=== PATIENT | male | born 1970 | race Caucasian/White ===

== ENCOUNTER 2017-06-21 00:23 | Observation (INO) | payer SELFPAY ==
[2017-06-21 01:15] LABS: Bilirubin Negative (Negative); Blood, Urine Negative (Negative); Clarity CLEAR (Clear); Glucose, Urine (Dipstick) Negative (Negative); Leukocyte Negative (Negative); Nitrite Negative (Negative); Protein, Urine (Dipstick) Negative (Neg-Trace); Specific Gravity, Urine 1.011 (1.002-1.036); Urobilinogen 0.2 mg/dL (0.2-1.0); pH, Urine 7.5 (5.0-9.0)
[2017-06-21 01:23] LABS: Medtox Reader # READER 4
[2017-06-21 01:24] LABS: Amphetamine Not Detected (NotDetected); Barbiturates Screen Not Detected (NotDetected); Benzodiazepine Screen Not Detected (NotDetected); Cocaine Metabolite Screen Not Detected (NotDetected); Medtox Control Line Valid? VALID (VALID); Methadone Not Detected (NotDetected); Methamphetamine Not Detected (NotDetected); Opiate Screen Not Detected (NotDetected); Oxycodone Screen Not Detected (NotDetected); Phencyclidine (PCP) Not Detected (NotDetected); THC/Cannabinoid Screen Detected (NotDetected); Tricyclic Screen Not Detected (NotDetected)
[2017-06-21 01:39] LABS: CKMB 2.7 ng/mL (0-6.6); Troponin I 0.039 ng/mL (< 0.028)
[2017-06-21] MEDS ORDERED: Ondansetron HCl/PF 4 MG/2 ML Vial IVP PRN (03:05)
[2017-06-21] MEDS ORDERED: Acetaminophen 325 MG TAB PO PRN (03:05)
[2017-06-21] MEDS ORDERED: Metoprolol Tartrate 25 MG TAB PO SCH ×2 (03:05→09:00)
[2017-06-21] MEDS ORDERED: Enoxaparin Sodium 40 MG/0.4 ML SYRINGE SC SCH (03:05)
[2017-06-21] MEDS ORDERED: HYDROcodone/Acetaminophen 5/325 mg Tablet PO PRN (03:05)
[2017-06-21] MEDS: Nitroglycerin 2% Ointment 1 INCH/1 GM Packet TOP SCH ×3 (03:47→14:02)
[2017-06-21 03:51] VITALS: BMI 32.5
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
[2017-06-21 06:13] LABS: Cardiac Risk 4.6 (Less than 4.5)
[2017-06-21 06:17] LABS: CKMB 2.7 ng/mL (0-6.6); Troponin I 0.037 ng/mL (< 0.028)
[2017-06-21] MEDS ORDERED: Aspirin 325 MG TAB PO SCH (08:00)
[2017-06-21] MEDS ORDERED: Famotidine/PF 20 mg/2ml Vial SLOW IVP SCH (09:00)
[2017-06-21 11:59] VITALS: BP 158/88; TEMP 98.1
--- NOTE | 2017-06-21 13:49 | NM ---
CARDIAC SPECT: CLINICAL HISTORY: 46-year-old male with hypertension, atherosclerotic vascular disease, stroke, asthma, smoke r. TECHNIQUE: A myocardial perfusion scan was performed using the single isotope one day protocol with technetium-9 9m sestamibi. 11 mCi were injected intravenously for the rest exam followed by 33 mCi for the stress exam. Pharmacologic stress with Lexiscan was monitored and interpreted by Dr. Olea. FINDINGS: Homogeneous tracer distribution is seen in the myocardial segments on stress and rest images without fixed or reversible defects. GATED SPECT LVEF: 62%. WALL MOTION EXAM: Normal. IMPRESSION: Normal myocardial perfusion scan. POS: KATHRYN
[2017-06-21] MEDS ORDERED: Regadenoson 0.4 MG/5 ML SYRINGE ONE (15:33)
--- NOTE | 2017-06-21 17:55 | DIS ---
DATE OF ADMISSION: 06/21/2017 DATE OF DISCHARGE: 06/21/2017 DISCHARGE DIAGNOSES: 1. Chest pain, non-cardiac. 2. Hypertensive urgency, resolved. 3. Marijuana use. 4. Status post influenza. CONSULTATIONS: None. PERTINENT LAB AND X-RAY FINDINGS: Basic metabolic profile within normal limits. LFTs within normal limits. Troponin I ranged between 0.036-0.039, total cholesterol 142, triglycerides 72, HDL 31 and L DL 97. CBC showed a white blood cell count of 11.7, hemoglobin 16, hematocrit 50 and platelet count 235. Urine drug screen positive for cannabinoids. Portable chest x-ray dated 06/20/2017 showed no a cute cardiopulmonary process. Cardiolite stress test dated 06/21/2017 showed no evidence for reversi ble or fixed ischemia with calculated ejection fraction of 62%. A 2D transthoracic echocardiogram da mitzi 06/21/2017 showed an ejection fraction of 50% to 55%. No pathology identified. HOSPITAL COURSE: Patient was observed on the telemetry unit after presenting with elevated blood pre ssure and questionable chest pain. The patient underwent serial troponins showing mild elevation as stated previously. The patient was also noted with elevated blood pressures, initially placed on asp irin and labetalol. The patient underwent a general cardiac evaluation including cardiac stress test ing showing no evidence of reversible or fixed ischemia with calculated ejection fraction of 62%. Te lemetry monitoring showed sinus mechanism without evidence of acute arrhythmia or dysrhythmia. The p atient was initiated on metoprolol 25 mg b.i.d. with overall improved blood pressure trend. The neris ent likely will need additional titration of his antihypertensive regimen on an ongoing basis after d ischarge. Overall, the patient remained clinically stable throughout the hospital course and ready f or discharge on 06/21/2017. DISCHARGE MEDICATIONS: Metoprolol 25 mg one tab p.o. b.i.d. FOLLOWUP: Patient given a list of clinics for followup and will establish care on his own. CONDITION ON DISCHARGE: Stable. ACTIVITY: Ad lorna. DIET: Heart healthy. CODE STATUS: Full. DISPOSITION: Home on 06/21/2017.
[2017-06-22] MEDS ORDERED: Enoxaparin Sodium 40 MG/0.4 ML SYRINGE SC SCH (09:00)
== END 2017-06-21 15:59 | disposition home or self-care (01) ==
LOC: ERS 00:23 → T4-B 01:10 → 2SW 02:47
PROVIDERS: ADMIT Internal Medicine Infectious Disease; ATTEND Internal Medicine Infectious Disease
DX: R07.89 Other chest pain (principal); I16.0 Hypertensive urgency; I10 Essential (primary) hypertension; F12.10 Cannabis abuse, uncomplicated; J45.901 Unspecified asthma with (acute) exacerbation; Z86.11 Personal history of tuberculosis; Z86.73 Personal history of transient ischemic attack (TIA), and cerebral infarction without residual deficits; Z86.74 Personal history of sudden cardiac arrest; Z87.891 Personal history of nicotine dependence; Z88.0 Allergy status to penicillin; Z88.5 Allergy status to narcotic agent; Z90.49 Acquired absence of other specified parts of digestive tract; Z98.890 Other specified postprocedural states
CPT/HCPCS: 36415; 78452; 80061; 80306; 81003; 82553; 83735; 84484; 93005; 93017; 93306; 96372; 96374; A9500; G0378; J1650; J2785; S0028

== ENCOUNTER 2017-12-27 11:09 | Outpatient (CLI) | payer OTHER ==
[2017-12-27 13:57] LABS: #Basophils 0.1 thou/uL (0.0-0.2); #Eosinphils 0.4 thou/uL (0.0-0.7); #Lymphocytes 3.8 thou/uL (1.20-3.40); #Monocytes 0.8 thou/uL (0.11-0.59); #Neutrophils 5.1 thou/uL (1.40-6.50); %Basophils 0.7 % (0.0-1.0); %Eosinophils 3.8 % (0.0-10.0); %Lymphocytes 37.2 % (21.0-51.0); %Monocytes 7.9 % (0.0-10.0); %Neutrophils 50.4 % (42.0-75.0); Mean Corpuscular HGB CONC 35.1 g/dL (32.0-36.0); Mean Corpuscular Hemoglobin 31.4 pg (27.0-31.0); Mean Corpuscular Volume 89.6 fL (78.0-98.0); Mean Platelet Volume 7.6 fL (7.4-10.4); Platelet Count 223 thou/uL (130-400); RBC Distribution Width 12.9 % (11.5-14.5); Red Blood Cell (RBC) Count 5.08 mill/uL (4.70-6.10); White Blood Cell (WBC) Count 10.1 thou/uL (4.8-10.8)
[2017-12-27 14:27] LABS: Anion Gap 10 mmol/L (10-20); BUN (Urea Nitrogen) 15 mg/dL (8.9-20.6); Calc. Creatinine Clearance 0 mL/min (70-130); Calcium 9.2 mg/dL (7.8-10.44); Carbon Dioxide 29 mmol/L (22-29); Chloride 104 mmol/L (98-107); Estimated GFR-MDRD Greater than 90; Glucose 81 mg/dL (70-105); Potassium 3.7 mmol/L (3.5-5.1); Sodium 139 mmol/L (136-145)
--- NOTE | 2017-12-27 15:19 | EKG ---
Test Reason : Blood Pressure : / mmHG Vent. Rate : 061 BPM Atrial Rate : 061 BPM P-R Int : 184 ms QRS Dur : 134 ms QT Int : 444 ms P-R-T Axes : 029 012 022 degrees QTc Int : 446 ms Normal sinus rhythm Right bundle branch block Abnormal ECG When compared with ECG of 21-JUN-2017 01:41, No significant change was found Confirmed by ELENA JENSEN MD ([id number]) on 12/27/2017 3:18:44 PM Referred By: IRON Confirmed By:ELENA JENSEN MD
== END 2017-12-27 11:10 | disposition home or self-care (01) ==
LOC: LABBT 11:09
PROVIDERS: ATTEND Surgery
DX: Z01.812 Encounter for preprocedural laboratory examination (principal); K40.90 Unilateral inguinal hernia, without obstruction or gangrene, not specified as recurrent
CPT/HCPCS: 80048; 85025; 93005; 93010

== ENCOUNTER 2018-01-08 11:00 | Day surgery (SDC) | payer OTHER ==
[2017-12-27 11:36] VITALS: BMI 34.2
[2018-01-08] MEDS ORDERED: Lidocaine 1% PF 5 ML VIAL ONE (12:26)
[2018-01-08] MEDS ORDERED: Metoprolol Tartrate 5 MG/5 ML VIAL ONE (12:26)
[2018-01-08] MEDS ORDERED: Dexamethasone 20 MG/5 ML VIAL ONE (12:26)
[2018-01-08] MEDS ORDERED: Ondansetron HCl/PF 4 MG/2 ML Vial ONE (12:26)
[2018-01-08] MEDS ORDERED: PROPOFOL 200 MG/20 ML VIAL ONE (12:26)
[2018-01-08] MEDS ORDERED: CEFAZOLIN/Water 2 GM/20 ML SYRINGE ONE (12:55)
[2018-01-08] MEDS ORDERED: Levofloxacin 500 mg/D5W 100 ml Premix Bag ONE (14:06)
[2018-01-08] MEDS ORDERED: Bupivacaine/Epinephrine 0.25% 30 ML VIAL ONE (14:11)
[2018-01-08] MEDS ORDERED: Midazolam HCl 2 mg/2 ml Vial ONE ×3 (14:17→16:57)
[2018-01-08] MEDS ORDERED: Fentanyl 250 MCG/5 ML VIAL ONE (14:21)
[2018-01-08] MEDS ORDERED: hydrALAZINE 20 MG/ML VIAL ONE (14:58)
[2018-01-08] MEDS ORDERED: Fentanyl 100 MCG/2 ML VIAL ONE ×4 (15:55→17:43)
[2018-01-08] MEDS ORDERED: Morphine 4 MG/ML VIAL ONE ×2 (18:01→18:37)
--- NOTE | 2018-01-09 14:32 | OP ---
DATE OF PROCEDURE: 01/08/2018 PREOPERATIVE DIAGNOSIS: Left inguinal hernia. POSTOPERATIVE DIAGNOSIS: Bilateral inguinal hernia. PROCEDURE: Laparoscopic da Katharine robot bilateral inguinal hernia repair with mesh, 3DMax large. SURGEON: Dr. Mo Chinchilla ANESTHESIA: General. ESTIMATED BLOOD LOSS: Minimal. COMPLICATIONS: None. SPECIMEN: None. FINDINGS: Bilateral indirect inguinal hernia. TECHNIQUE: The patient was taken to the operating room and placed supine on the table. After genera l anesthetic was obtained, the abdomen was shaved and prepped and draped in a sterile fashion. A Fol ey catheter had been placed. Curved incision made below the umbilicus. Cautery was used to dissect down to and score the fascia. Abdominal cavity was entered bluntly using a Heather clamp. An 11 mm ba lloon trocar is placed and high-flow pneumoperitoneum was obtained. Left and right abdominal 8 mm ro bot trocars were placed. All ports are docked to the robot. The surgeon goes to the console. The p atient had bilateral inguinal hernias. Bilateral 3DMax large mesh was brought into the sterile field , placed in the abdomen. The peritoneum in the bilateral groin is taken down exposing the preperiton eal space, bilateral dissection is performed all the way to the pubic tubercle medially, anterior jamilah ac crest laterally. Bilateral indirect inguinal hernias were dissected out inguinal canal high up on to the peritoneum away from the other cord structures. There was no direct defects. There was no fe moral defect. The end-labeled medial aspect of the mesh on each side was placed in the preperitoneal space and sewn to the pubic tubercle using 2-0 Vicryl. The mesh is sewn to the lateral fascia using 2-0 Vicryl as well lateral to the inferior epigastric vessels. The mesh completely covers the bilat eral indirect, direct and femoral areas. The bilateral peritoneum is reapproximated using 3-0 Strata fix. The wounds are irrigated. Local anesthetic is applied. All ports were removed under camera vi sualization. Pneumoperitoneum was let down. PDS was used to close the fascial defect above the umbi licus. All incisions were irrigated and closed using 4-0 Monocryl and Dermabond. The patient is in recovery in stable condition. All instrument counts, needle counts, lap counts are correct.
== END 2018-01-08 20:20 | disposition home or self-care (01) ==
LOC: SDC 11:00
PROVIDERS: ATTEND Surgery
PROC: 0YUA4JZ Supplement Bilateral Inguinal Region with Synthetic Substitute, Percutaneous Endoscopic Approach (ICD-10-PCS; principal; 2018-01-08)
DX: K40.20 Bilateral inguinal hernia, without obstruction or gangrene, not specified as recurrent (principal); J45.909 Unspecified asthma, uncomplicated; Z79.899 Other long term (current) drug therapy; Z88.0 Allergy status to penicillin; Z88.5 Allergy status to narcotic agent
CPT/HCPCS: 96374; 96375; C1781; J0360; J1100; J1956; J2001; J2250; J2270; J2405; J2704; J3010

== ENCOUNTER 2025-03-02 18:01 | Observation (INO) | payer BC ==
[2025-03-02] MEDS ORDERED: Acetaminophen 325 MG TAB PO PRN (22:28)
[2025-03-02] MEDS ORDERED: Calcium Carbonate 500 MG ChewTAB PO PRN (22:28)
[2025-03-02 22:29] VITALS: BMI 31.4
[2025-03-02] MEDS ORDERED: Glucagon 1 MG/ML KIT IM PRN (22:33)
[2025-03-02] MEDS ORDERED: Dextrose 50% Abboject 50 ML SYRINGE SLOW IVP PRN (22:33)
[2025-03-03 04:55] LABS: #Basophils 0.08 10x3/uL (0.0-0.2); #Eosinophils 0.39 10x3/uL (0.0-0.7); #Monocytes 1.02 10x3/uL (0.11-0.59); #Neutrophils 6.02 10x3/uL (1.40-6.50); %Basophils 0.7 % (0.0-1.0); %Eosinophils 3.5 % (0.0-10.0); %Lymphocytes 31.4 % (21.0-51.0); %Monocytes 9.3 % (0.0-10.0); %Neutrophils 54.6 % (42.0-75.0); Hematocrit 46.1 % (42.0-52.0); Hemoglobin 15.3 g/dL (14.0-18.0); Mean Corpuscular Hemoglobin 30.2 pg (27.0-31.0); Mean Corpuscular Volume 90.9 fL (78.0-98.0); Platelet Count 220 10x3/uL (130-400); Red Blood Cell (RBC) Count 5.07 mill/uL (4.70-6.10); White Blood Cell (WBC) Count 11.02 10x3/uL (4.8-10.8)
[2025-03-03 05:23] LABS: ALT (SGPT) 22 U/L (Less than 45); AST (SGOT) 24 U/L (11-34); Albumin 3.8 g/dL (3.1-4.5); Alkaline Phosphatase 91 U/L (40-110); Anion Gap 14 mmol/L (10-20); BUN (Urea Nitrogen) 11 mg/dL (8.4-25.7); Bilirubin, Total 0.9 mg/dL (0.3-1.2); Calc. Creatinine Clearance 136 mL/min (70-130); Calcium 9.1 mg/dL (7.8-10.44); Carbon Dioxide 28 mmol/L (22-29); Chloride 103 mmol/L (98-107); Globulin 3.1 g/dL (2.4-3.5); Glucose 100 mg/dL (70-105); Magnesium 2.1 mg/dL (1.6-2.6); Potassium 3.7 mmol/L (3.5-5.1); Sodium 141 mmol/L (136-145)
[2025-03-03] MEDS: Apixaban 5 MG TAB PO SCH (10:33)
[2025-03-03] MEDS: Bisoprolol Fumarate/HCTZ 10 mg/6.25 mg Tablet PO SCH (10:33)
[2025-03-03] MEDS: Pantoprazole 40 MG DR.TAB PO SCH (10:33)
[2025-03-03] MEDS: Lisinopril 10 MG TAB PO SCH (10:34)
[2025-03-03] MEDS: Furosemide 20 MG TAB PO SCH (10:37)
[2025-03-03] MEDS: Gabapentin 300 MG CAP PO SCH (10:37)
[2025-03-03 11:45] VITALS: BP 142/81; TEMP 98.2
== END 2025-03-03 15:20 | disposition home or self-care (01) ==
LOC: MSONC 18:01
PROVIDERS: ADMIT Family Medicine; ATTEND Family Medicine
DX: R11.2 Nausea with vomiting, unspecified (principal); R10.13 Epigastric pain; I10 Essential (primary) hypertension; I25.10 Atherosclerotic heart disease of native coronary artery without angina pectoris; E11.9 Type 2 diabetes mellitus without complications; E78.5 Hyperlipidemia, unspecified; F41.9 Anxiety disorder, unspecified; F32.9 Major depressive disorder, single episode, unspecified; N40.0 Benign prostatic hyperplasia without lower urinary tract symptoms; K21.9 Gastro-esophageal reflux disease without esophagitis; Z87.891 Personal history of nicotine dependence; Z88.6 Allergy status to analgesic agent; Z88.0 Allergy status to penicillin; Z88.8 Allergy status to other drugs, medicaments and biological substances; Z88.5 Allergy status to narcotic agent; Z79.01 Long term (current) use of anticoagulants; Z79.82 Long term (current) use of aspirin; Z79.899 Other long term (current) drug therapy
CPT/HCPCS: 36415; 36416; 76705; 80053; 83735; 84100; 85025